=== PATIENT | female | born 1990 | race African-American/Black ===

== ENCOUNTER 2018-04-09 07:20 | Observation (INO) | payer MEDICAID, OTHER ==
[~2018-04-09] VITALS: Ht 160 cm; Wt 116.6 kg
[2018-04-09 08:03] VITALS: BP 119/77
[2018-04-09] MEDS ORDERED: PREN-134 PO (08:40)
== END 2018-04-09 08:55 | disposition home or self-care (01) ==
LOC: 4S 07:20
PROVIDERS: ADMIT Obstetrics & Gynecology; ATTEND Obstetrics & Gynecology
DX: O26.892 Other specified pregnancy related conditions, second trimester (principal); M54.9 Dorsalgia, unspecified; Z3A.24 24 weeks gestation of pregnancy
CPT/HCPCS: 59025; G0378